=== PATIENT | male | born 1975 | race Two or more races ===

== ENCOUNTER 2019-09-19 01:40 | Emergency (ER) | payer SELFPAY ==
[~2019-09-19] VITALS: Ht 177.8 cm; Wt 101.6 kg
[2019-09-19 01:50] VITALS: BP 158/96
[2019-09-19 02:44] LABS: ANION GAP 2 mmol/L (5-15); CHLORIDE 112 mmol/L (98-107)
[2019-09-19 02:45] LABS: ALBUMIN 2.4 g/dL (3.4-5.0); CALCIUM 8.1 mg/dL (8.5-10.1)
[2019-09-19 02:49] LABS: CREATININE 0.87 mg/dL (0.7-1.3); TROPONIN I < 0.015 ng/mL (0.000-0.045)
[2019-09-19 03:14] LABS: BASOPHILS # (AUTO) 0.02 x10^3/uL (0-0.1); BASOPHILS % (AUTO) 0 % (0-1); EOSINOPHILS # (AUTO) 0.08 x10^3/uL (0-0.4); EOSINOPHILS % (AUTO) 2 % (1-7); LYMPHOCYTES # (AUTO) 1.36 x10^3/uL (1-3.4); LYMPHOCYTES % (AUTO) 30 % (22-44); MD SCAN; MEAN CORPUSCULAR HEMOGLOBIN 26.6 pg (27.5-34.5); MEAN CORPUSCULAR VOLUME 83.1 fL (81-97); MEAN PLATELET VOLUME 9.9 fL (7.4-10.4); MONOCYTES % (AUTO) 13 % (2-9); NEUTROPHILS # (AUTO) 2.46 x10^3/uL (1.8-6.8); NEUTROPHILS % (AUTO) 55 % (42-75); PLATELET COUNT 80 x10^3/uL (130-400); RED BLOOD COUNT 4.31 x10^6/uL (4.38-5.82); RED CELL DISTRIBUTION WIDTH 18.3 % (9.4-14.8)
== END 2019-09-19 04:11 | disposition home or self-care (01) ==
LOC: ED 03:12
DX: I10 Essential (primary) hypertension (principal); R07.9 Chest pain, unspecified; R51 Headache; Z87.19 Personal history of other diseases of the digestive system
CPT/HCPCS: 36415; 71045; 80048; 82040; 84484; 85025; 93005; 99284

== ENCOUNTER 2020-09-14 00:49 | Emergency (ER) | payer SELFPAY ==
[~2020-09-14] VITALS: Ht 170.2 cm; Wt 99.5 kg
--- NOTE | 2020-09-14 01:18 | NUR ---
cc of chest pain and back pain for 4 weeks 05/31. 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 pt denies cough and fever. connected to personnel monitor and continuous pulse ox.
[2020-09-14] MEDS ORDERED: IBUPROFEN 800 MG TABLET ONE (01:21)
[2020-09-14] MEDS ORDERED: ONDANSETRON ODT 4 MG ONE (01:22)
[2020-09-14] MEDS ORDERED: ONDANSETRON ODT 4 MG PO ONE (01:30)
[2020-09-14] MEDS ORDERED: IBUPROFEN 800 MG TABLET PO ONE (01:30)
[2020-09-14 01:45] LABS: MEAN CORPUSCULAR HEMOGLOBIN 30.6 pg (27.5-34.5); MEAN CORPUSCULAR HGB CONC 33.7 g/dL (33.2-36.2); MEAN PLATELET VOLUME 9.1 fL (7.4-10.4); PLATELET COUNT 92 x10^3/uL (130-400); RED BLOOD COUNT 4.63 x10^6/uL (4.38-5.82)
[2020-09-14 02:04] LABS: ALANINE AMINOTRANSFERASE 86 U/L (12-78); ALBUMIN 2.7 g/dL (3.4-5.0); ANION GAP 10 mmol/L (5-15); CHLORIDE 109 mmol/L (98-107); CREATININE 0.86 mg/dL (0.7-1.3)
[2020-09-14 02:08] LABS: ALKALINE PHOSPHATASE 134 U/L (45-117); BILIRUBIN,TOTAL 1.7 mg/dL (0.2-1.0); MD YES; TOTAL PROTEIN 6.7 g/dL (6.4-8.2); TROPONIN I < 0.015 ng/mL (0.000-0.045)
[2020-09-14 02:12] LABS: BASOS#(MANUAL) 0.06 x10^3/uL (0-0.1); BASOS% (MANUAL) 1 % (0-1); LYMPH#(MANUAL) 2.65 x10^3/uL (1-3.4); LYMPHS% (MANUAL) 42 % (22-44); MONOS#(MANUAL) 0.32 x10^3/uL (0.3-2.7); MONOS% (MANUAL) 5 % (2-9); SEG#(MANUAL) 3.28 x10^3/uL (1.8-6.8); SEGS% (MANUAL) 52 % (42-75)
[2020-09-14 02:13] LABS: <PLATELET ESTIMATE> DECREASED; <PLT MORPHOLOGY> NORMAL PLT MORPH; ANISOCYTOSIS 1+
--- NOTE | 2020-09-14 02:16 | NUR ---
TASK RN: PT UPRIGHT IN [facility], MILD DISTRESS SECONDARY TO PAIN. PT REPORTS 'REALLY BAD' BACK PAIN DESPITE RX PROVIDED. ERP AWARE. AWAITING ORDERS
--- NOTE | 2020-09-14 02:25 | NUR ---
TASK RN: (YEYO) [phone] CAN TRANSPORT PT HOME WHEN READY
[2020-09-14] MEDS ORDERED: METHOCARBAMOL 750 MG TABLET ONE (02:40)
[2020-09-14] MEDS ORDERED: METHOCARBAMOL 750 MG TABLET PO ONE (03:00)
[2020-09-14 03:02] VITALS: BP 153/100
== END 2020-09-14 03:04 | disposition home or self-care (01) ==
LOC: ED 02:00
DX: R07.89 Other chest pain (principal); F10.10 Alcohol abuse, uncomplicated; R00.0 Tachycardia, unspecified; R51.9 Headache, unspecified; M54.5 Low back pain; I10 Essential (primary) hypertension; Z72.9 Problem related to lifestyle, unspecified; Y90.9 Presence of alcohol in blood, level not specified
CPT/HCPCS: 36415; 71045; 80053; 80320; 84484; 85025; 93005; 99285; Q0162; G0480